=== PATIENT | female | born 1955 | race Caucasian/White ===

== ENCOUNTER → 2024-01-29 13:20 | Outpatient (REF) | payer MEDICARE, SELFPAY | LOC: RAD 13:20 | PROVIDERS: ATTENDING PHYSICIAN Internal Medicine | DX: M81.8 Other osteoporosis without current pathological fracture (principal); Z78.0 Asymptomatic menopausal state | CPT/HCPCS: 77080 ==

== ENCOUNTER → 2024-03-26 08:13 | Outpatient (REF) | payer MEDICARE, SELFPAY | LOC: WDC 08:13 | PROVIDERS: ATTENDING PHYSICIAN Internal Medicine | DX: Z12.31 Encounter for screening mammogram for malignant neoplasm of breast (principal) | CPT/HCPCS: 77063; 77067 ==

== ENCOUNTER → 2025-01-14 12:49 | Outpatient (REF) | payer MEDICARE, SELFPAY | LOC: WDC 12:49 | PROVIDERS: ATTENDING PHYSICIAN Surgery; FAMILY PHYSICIAN Internal Medicine | DX: R92.30 Dense breasts, unspecified (principal) | CPT/HCPCS: 76641 ==

== ENCOUNTER 2025-01-27 06:07 | Day surgery (SDC) | payer MEDICARE, SELFPAY ==
[2025-01-12 11:45] LABS: Hematocrit 38.3 % (37.0-47.0); Hemoglobin 12.8 g/dL (12.0-16.0); Mean Corp Hgb Conc. 33.4 g/dL (33.0-37.0); Mean Corpuscular Volume 94.3 fL (81.0-99.0); Platelet Count 256 10^3/uL (130-400); Red Cell Dist. Width 12.7 % (11.5-14.5)
[2025-01-12 12:11] LABS: ALT (SGPT) 75 U/L (0-35); AST (SGOT) 49 U/L (14-36); Albumin 4.2 g/dl (3.5-5.0); Alkaline Phosphatase 57 U/L (38-126); Blood Urea Nitrogen 14 mg/dl (7-17); Calcium 9.1 mg/dl (8.4-10.2); Carbon Dioxide 28 mmol/L (22-30); Chloride 106 mmol/L (98-107); Glucose 89 mg/dl (70-99); Potassium 4.6 mmol/L (3.5-5.1); Sodium 140 mmol/L (135-145); Total Protein 6.5 g/dl (6.3-8.2); eGFR > 60.00
[2025-01-12 12:27] LABS: Prealbumin (Transthyretin) 31.4 mg/dl (17.6-36.0)
[2025-01-12 12:43] LABS: Vitamin D, 25-OH*** 45.1 ng/mL (30-80)
[2025-01-12 14:07] VITALS: BMI 25.7
--- NOTE | 2025-01-12 14:47 | PTCARENOTE ---
Patients 01/12 ECG abnormal- reviewed by Dr. Bailon, no additional interventions required.
[2025-01-27 06:45] VITALS: BP 147/67
[2025-01-27 07:00] VITALS: BMI 25.7
[2025-01-27] MEDS: TYLENOL 1000 MG PO (07:06)
[2025-01-27] MEDS: LOVENOX 40 MG SC (07:06)
[2025-01-27] MEDS: NORMOSOL-R/PLASMALYTE-A 1000 IV (07:06)
--- NOTE | 2025-01-27 07:08 | W.SUR.PREOP ---
Pre-Operative Surgical Note
-
I have examined this patient prior to the performance of the scheduled procedure.
The patient's condition is unchanged from the time of the current History and
Physical and the patient is able to undergo the scheduled procedure.
[2025-01-27 08:15] VITALS: BP 108/43
--- NOTE | 2025-01-27 08:27 | W.IMMPOSTOP ---
Surgical Immed Post Op Note
-
Primary Surgeon: Paulina
Assisting Surgeon: None
Pre-op Diagnosis: Mass of left axilla
Post-op Diagnosis: Same
Procedure Performed: Excisional biopsy left axillary mass
Anesthesia Type: TIVA
Specimen / Cultures: Left axillary mass
Estimated Blood Loss: 4cc
Complications: None
Operative Findings: None
--- NOTE | 2025-01-27 08:29 | OR.RPT ---
Operative Report
Operative Report
Date of procedure: 01/27/2025
Surgeon: Paulina
Preoperative diagnosis: Left axillary mass
Postoperative diagnosis: Left axillary mass
Procedure: Excisional biopsy left axillary mass
The patient is a 70-year-old female with a history of stage IIIa left breast carcinoma treated in 2014. She developed a left axillary mass that had been inflamed and responded to antibiotics and she presents for excision.
The patient presented to same-day surgical services on the day of the procedure. She verified site and procedure. DVT and antibiotic prophylaxis were provided and she was transferred to the operating room. In the supine position intravenous
sedation was delivered. With left arm extended the field was prepped and draped in usual sterile fashion. An appropriate timeout was performed by all team members.
Tissues were anesthetized with 1% lidocaine plain. A wedge excision of the skin overlying the mass was made sharply with the blade and resection was carried down to and including subcutaneous tissue. The specimen measured 1.5 x 1.0 cm. Time out
of body was noted and it was sent for permanent analysis. Hemostasis was maintained with the cautery. Marcaine 0.5% plain was instilled into all tissues and the wound was closed using simple interrupted 3-0 plain on deep and subcutaneous tissues
and skin was closed with a running subcuticular 4 Monocryl.
Surgical glue and sterile compressive dressing were applied. All sponge needle and instrument counts were correct and the patient was transferred to the recovery room in stable condition.
([id number])
[2025-01-27 08:30] VITALS: BP 96/40
[2025-01-27 08:46] VITALS: BP 100/51
[2025-01-27 08:53] VITALS: BP 111/49
== END 2025-01-27 09:05 | disposition home or self-care (01) ==
LOC: SDS 06:07
PROVIDERS: ATTENDING PHYSICIAN Surgery; FAMILY PHYSICIAN Internal Medicine
DX: I89.8 Other specified noninfective disorders of lymphatic vessels and lymph nodes (principal); R22.9 Localized swelling, mass and lump, unspecified; Z85.3 Personal history of malignant neoplasm of breast
CPT/HCPCS: 38525; 11450; 36415; 80053; 82306; 84134; 85027; 88307; 93005

== ENCOUNTER → 2025-03-30 10:35 | Outpatient (REF) | payer MEDICARE, SELFPAY | LOC: WDC 10:35 | PROVIDERS: ATTENDING PHYSICIAN Internal Medicine | DX: Z12.31 Encounter for screening mammogram for malignant neoplasm of breast (principal) | CPT/HCPCS: 77063; 77067 ==